=== PATIENT | female | born 1930 | race Caucasian/White ===

== ENCOUNTER 2018-08-05 11:28 | Emergency (ER) | payer MEDICARE ==
[2018-08-05] MEDS: DIPHTH/TET/ACEL PERTUSS (ADULT) 0.5 ML VIAL IM* (12:41)
== END 2018-08-05 13:57 | disposition home or self-care (01) ==
LOC: E/R 11:28
DX: S81.811A Laceration without foreign body, right lower leg, initial encounter (principal); I10 Essential (primary) hypertension; W19.XXXA Unspecified fall, initial encounter; Y92.9 Unspecified place or not applicable; Z23 Encounter for immunization; Z79.01 Long term (current) use of anticoagulants
CPT/HCPCS: 12005; 90471; 90715; 99283-25